=== PATIENT | female | born 1995 | race African-American/Black ===

== ENCOUNTER 2016-06-27 15:36 | Emergency (ER) | payer SELFPAY ==
[~2016-06-27] VITALS: Ht 157.5 cm; Wt 106.0 kg
[2016-06-27] MEDS ORDERED: IBUPROFEN 600MG TABLET PO ONE (16:15)
[2016-06-27 17:50] VITALS: BP 128/78
== END 2016-06-27 18:14 | disposition home or self-care (01) ==
LOC: ER 16:32
DX: S80.02XA Contusion of left knee, initial encounter (principal); M54.9 Dorsalgia, unspecified; W19.XXXA Unspecified fall, initial encounter; Y93.84 Activity, sleeping; Y92.89 Other specified places as the place of occurrence of the external cause; Y99.0 Civilian activity done for income or pay
CPT/HCPCS: 73562; 99284